=== PATIENT | male | born 1960 | race Caucasian/White ===

== ENCOUNTER 2017-07-28 16:01 | Emergency (ER) | payer SELFPAY ==
[~2017-07-28] VITALS: Ht 172.7 cm; Wt 99.8 kg
[2017-07-28 16:17] VITALS: BP 114/84
[2017-07-28 17:19] LABS: Basophils # (auto) 0.2 uL; Hemoglobin 12.7 g/dL (13.5-17.5); Mean Corpuscular Hemoglobin 27.9 pg (28.0-32.0); Red Blood Cells 4.56 10^6/uL (4.5-5.90)
[2017-07-28 17:20] LABS: Basophils % (auto) 1.2 % (0.0-2.0); Eosinophils # (auto) 0.1 uL; Eosinophils % (auto) 0.8 % (0.0-7.0); Hematocrit 39.2 % (41.0-53.0); Lymphocytes # (auto) 1.8 uL; Lymphocytes % (auto) 11.2 % (10.0-50.0); Mean Corpuscular Hgb Conc. 32.5 g/dL (32.0-36.0); Monocytes # (auto) 1.9 uL; Monocytes % (auto) 11.6 % (0.0-12.0); Neutrophils # (auto) 12.3 uL; Neutrophils % (auto) 75.2 % (37.0-80.0); Nucleated Red Blood Cells % 0.1 %; Platelet Count (auto) 503 10^3/uL (140-450); White Blood Cell 16.3 10^3/uL (4.4-10.8)
[2017-07-28 17:28] LABS: Albumin 3.4 g/dL (3.4-5.0); Calcium 8.9 mg/dL (8.5-10.1); Potassium 3.2 mmol/L (3.5-5.1)
[2017-07-28 17:43] LABS: Bilirubin, Total 0.4 mg/dL (0.2-1.0); Total Protein 7.7 g/dL (6.4-8.2)
== END 2017-07-28 22:55 | disposition left against medical advice (07) ==
LOC: ER 16:05
DX: R06.02 Shortness of breath (principal); Z53.21 Procedure and treatment not carried out due to patient leaving prior to being seen by health care provider
CPT/HCPCS: 36415; 71046; 80053; 85025; 93005

== ENCOUNTER 2017-10-24 09:03 | Emergency (ER) | payer SELFPAY ==
[~2017-10-24] VITALS: Ht 172.7 cm; Wt 99.8 kg
[2017-10-24 09:24] VITALS: BP 184/112
[2017-10-24] MEDS ORDERED: TETANUS-DIPTH-ACEL PERTUSSIS 0.5ML SYRG IM ONE (09:30)
== END 2017-10-24 10:54 | disposition home or self-care (01) ==
LOC: ER 09:03
DX: S62.644A Nondisplaced fracture of proximal phalanx of right ring finger, initial encounter for closed fracture (principal); I10 Essential (primary) hypertension; J44.9 Chronic obstructive pulmonary disease, unspecified; F17.210 Nicotine dependence, cigarettes, uncomplicated; W22.8XXA Striking against or struck by other objects, initial encounter; Y93.89 Activity, other specified; Y99.8 Other external cause status; Y92.89 Other specified places as the place of occurrence of the external cause
CPT/HCPCS: 29125; 73120

== ENCOUNTER 2019-02-22 17:43 | Emergency (ER) | payer MEDICAID, OTHER ==
[~2019-02-22] VITALS: Ht 172.7 cm; Wt 104.3 kg
[2019-02-22] MEDS ORDERED: KETOROLAC TROMETH 60MG/2ML VIAL IM ONE (21:30)
[2019-02-22] MEDS ORDERED: HYDROmorphone HCL 2 MG/ML VL IM ONE (21:30)
[2019-02-22] MEDS ORDERED: cloNIDine HCL 0.1 MG TAB PO ONE (22:30)
[2019-02-22] MEDS ORDERED: cloNIDine HCL 0.1 MG TAB ONE (23:54)
[2019-02-23] MEDS ORDERED: cloNIDine HCL 0.1 MG TAB PO ONE
[2019-02-23 00:14] VITALS: BP 146/97
== END 2019-02-23 00:39 | disposition home or self-care (01) ==
LOC: ER 17:43
DX: S82.432A Displaced oblique fracture of shaft of left fibula, initial encounter for closed fracture (principal); I11.0 Hypertensive heart disease with heart failure; I50.9 Heart failure, unspecified; J44.9 Chronic obstructive pulmonary disease, unspecified; F17.210 Nicotine dependence, cigarettes, uncomplicated; F15.10 Other stimulant abuse, uncomplicated; W17.81XA Fall down embankment (hill), initial encounter; Y93.01 Activity, walking, marching and hiking; Y92.828 Other wilderness area as the place of occurrence of the external cause; Y99.8 Other external cause status
CPT/HCPCS: 29515; 73610; 96372; 99283; J1170; J1885